=== PATIENT | female | born 1960 | race Caucasian/White ===

== ENCOUNTER 2019-10-03 | Day surgery (SDC) | payer MEDICARE, MEDICAID ==
[~2019-10-03] MED LIST: ALL DAY10 MG PO; ARTHROTEC 50 PO; ASPIRIN 81 LOW81 MG MT; CALTRATE 600+D31 TAB; CENTRU2 PO; CETIRIZINE10 MG PO; ESTRADIOL0.1 MG/GM PO; FERROUS SULFAT325 MG PO; FISH OIL1000 MG PO; FUROSEMIDE20 MG PO; GABAPENTIN400 M2 PO; HYDROCODONE/ACE1 TAB PO; LIPITOR40 M1 PO; LORTAB 1010 MG PO; LYRICA150 MG PO; METFORMIN1000 MG PO; METO PO; MONTELUKAST SOD10 MG PO; NITROGLYCER0.1 MG/HR TD; PROAIR HFA IN; PROTONIX40 M4 PO; SERTRALINE50 MG PO; TIZANIDINE4 MG PO; TRULICITY0.75 MG/0.
[2019-10-03] MEDS ORDERED: LYRICA150 MG PO (07:54)
[2019-10-16] MEDS ORDERED: HYDROCODONE/ACE1 TAB PO (10:46)
[2019-11-13] MEDS ORDERED: HYDROCODONE/ACE1 TAB PO (10:52)
[2019-12-11] MEDS ORDERED: CLOPIDOGREL75 MG PO (10:49)
[2019-12-11] MEDS ORDERED: EVEKEO10 MG PO (10:49)
[2019-12-11] MEDS ORDERED: HYDROCODONE/ACE1 TAB PO (10:59)
[2020-01-08] MEDS ORDERED: HYDROCODONE/ACE1 TAB PO (11:04)
[2020-01-08] MEDS ORDERED: LYRICA150 MG PO (11:05)
[2020-02-12] MEDS ORDERED: PERCOCET 10/31 COMBO PO (11:20)
[2020-03-11] MEDS ORDERED: PERCOCET 10/31 COMBO PO (10:47)
[2020-04-08] MEDS ORDERED: PERCOCET 10/31 COMBO PO (10:45)
[2020-04-08] MEDS ORDERED: LYRICA225 MG PO (10:46)
[2020-05-06] MEDS ORDERED: PERCOCET 10/31 COMBO PO (11:32)
== END 2019-10-03 09:30 | disposition home or self-care (01) ==
DX: M46.1 Sacroiliitis, not elsewhere classified (principal)

== ENCOUNTER → 2019-10-24 | Day surgery (SDC) | payer MEDICARE, MEDICAID ==
[~2019-10-24] MED LIST changes: +CLOPIDOGREL75 MG PO; +EVEKEO10 MG PO; +LYRICA225 MG PO; +METFORMIN500 M2 PO; +PERCOCET 10/31 COMBO PO; +ULTRAM50 M1 PO
== END ==
DX: M51.26 Other intervertebral disc displacement, lumbar region (principal); M54.16 Radiculopathy, lumbar region
CPT/HCPCS: Q9967

== ENCOUNTER 2020-01-23 06:16 | Day surgery (SDC) | payer MEDICARE, MEDICAID ==
[~2020-01-23 06:16] MED LIST changes: -LYRICA225 MG PO; -METFORMIN500 M2 PO; -PERCOCET 10/31 COMBO PO; -ULTRAM50 M1 PO
[2020-01-23] MEDS ORDERED: METFORMIN500 M2 PO (06:48)
[2020-01-23 07:43] VITALS: BP 151/75
[2020-01-23] MEDS ORDERED: LYRICA225 MG PO (08:19)
[2020-02-12] MEDS ORDERED: PERCOCET 10/31 COMBO PO (11:20)
[2020-03-11] MEDS ORDERED: PERCOCET 10/31 COMBO PO (10:47)
[2020-04-08] MEDS ORDERED: PERCOCET 10/31 COMBO PO (10:45)
[2020-04-08] MEDS ORDERED: LYRICA225 MG PO (10:46)
[2020-05-06] MEDS ORDERED: PERCOCET 10/31 COMBO PO (11:32)
== END 2020-01-23 08:25 | disposition home or self-care (01) ==
LOC: ORM 06:16
PROVIDERS: ATTEND Anesthesiology Pain Medicine
DX: M76.32 Iliotibial band syndrome, left leg (principal); M70.62 Trochanteric bursitis, left hip; Z01.84 Encounter for antibody response examination; M51.26 Other intervertebral disc displacement, lumbar region; M54.16 Radiculopathy, lumbar region

== ENCOUNTER 2020-05-16 11:03 | Emergency (ER) | payer MEDICARE, MEDICAID ==
[~2020-05-16] VITALS: Ht 157.5 cm; Wt 94.5 kg
[~2020-05-16 11:03] MED LIST changes: +LYRICA225 MG PO; +METFORMIN500 M2 PO; +PERCOCET 10/31 COMBO PO
[2020-05-16] MEDS ORDERED: ULTRAM50 M1 PO (12:16)
[2020-05-16 12:41] VITALS: BP 128/59
== END 2020-05-16 12:42 | disposition home or self-care (01) ==
LOC: ED 11:03
DX: S96.912A Strain of unspecified muscle and tendon at ankle and foot level, left foot, initial encounter (principal); E11.9 Type 2 diabetes mellitus without complications; W18.30XA Fall on same level, unspecified, initial encounter; Y92.009 Unspecified place in unspecified non-institutional (private) residence as the place of occurrence of the external cause; Z79.84 Long term (current) use of oral hypoglycemic drugs

== ENCOUNTER 2021-07-03 12:32 | Emergency (ER) | payer MEDICARE, OTHER ==
[~2021-07-03] VITALS: Ht 157.5 cm; Wt 100.0 kg
[~2021-07-03 12:32] MED LIST changes: +DITROPAN5 MG/TA1 PO; +MEDDOSEPAK PO; +ULTRAM50 M1 PO
[2021-07-03] MEDS ORDERED: CENTRU2 PO (14:44)
[2021-07-03] MEDS ORDERED: CALTRATE 600+D31 TAB PO (14:45)
[2021-07-03] MEDS ORDERED: FISH OIL1000 MG PO (14:45)
[2021-07-03] MEDS ORDERED: SLOW-MAG PO (14:46)
[2021-07-03] MEDS ORDERED: IRON HIGH-POTE325 MG PO (14:48)
[2021-07-03] MEDS ORDERED: BIOTIN5000 MCG PO (14:49)
[2021-07-03] MEDS ORDERED: D32000 UNIT PO (14:49)
[2021-07-03] MEDS ORDERED: DICLOFENAC SODI50 MG PO (14:50)
[2021-07-03] MEDS ORDERED: LYRICA225 MG PO (14:51)
[2021-07-03] MEDS ORDERED: LASIX 20 MG TAB20 MG PO (14:52)
[2021-07-03] MEDS ORDERED: ADLT ASA LOW81 MG PO (14:52)
[2021-07-03] MEDS ORDERED: NITROSTAT0.4 MG SL (14:53)
[2021-07-03] MEDS ORDERED: PERCOCET 10/31 COMBO PO (14:53)
[2021-07-03] MEDS ORDERED: ATORVASTATIN CA40 MG PO (14:54)
[2021-07-03] MEDS ORDERED: PROTONIX40 M2 PO (14:54)
[2021-07-03] MEDS ORDERED: SINGULAIR10 MG PO (14:55)
[2021-07-03] MEDS ORDERED: METFORMIN500 M2 PO (14:55)
[2021-07-03] MEDS ORDERED: TRULICITY1.5 MG/0.5 SC (14:55)
[2021-07-03] MEDS ORDERED: PROAIR HFA IN (14:56)
[2021-07-03] MEDS ORDERED: CETIRIZINE10 MG PO (14:56)
[2021-07-03] MEDS ORDERED: TIZANIDINE4 MG PO (14:57)
[2021-07-03] MEDS ORDERED: SERTRALINE100 MG PO (14:57)
[2021-07-03] MEDS ORDERED: FLUOCIN ACET0.011 EX (14:58)
[2021-07-03] MEDS ORDERED: CLOPIDOGREL75 MG PO (14:59)
[2021-07-03] MEDS ORDERED: DITROPAN5 MG/TA1 PO (15:00)
[2021-07-03 18:30] VITALS: BP 122/66
[2021-07-07] MEDS ORDERED: PERCOCET 10/31 COMBO PO (11:21)
== END 2021-07-03 18:30 | disposition home or self-care (01) ==
LOC: ED 12:32
DX: M15.9 Polyosteoarthritis, unspecified (principal); E11.9 Type 2 diabetes mellitus without complications; I25.10 Atherosclerotic heart disease of native coronary artery without angina pectoris; K21.9 Gastro-esophageal reflux disease without esophagitis; J45.909 Unspecified asthma, uncomplicated; Z79.84 Long term (current) use of oral hypoglycemic drugs

== ENCOUNTER 2021-12-25 22:35 | Observation (INO) | payer MEDICARE, MEDICAID ==
[~2021-12-25] VITALS: Ht 157.5 cm; Wt 77.1 kg
[~2021-12-25 22:35] MED LIST changes: +ADLT ASA LOW81 MG PO; +ATORVASTATIN CA40 MG PO; +BIOTIN5000 MCG PO; +CALTRATE 600+D31 TAB PO; +D32000 UNIT PO; +DICLOFENAC SODI50 MG PO; +FLUOCIN ACET0.011 EX; +IRON HIGH-POTE325 MG PO; +LASIX 20 MG TAB20 MG PO; +NITROSTAT0.4 MG SL; +PROTONIX40 M2 PO; +SINGULAIR10 MG PO; +SLOW-MAG PO; +TRULICITY1.5 MG/0.5 SC
[2021-12-25 22:43] VITALS: BP 104/62
[2021-12-25 22:46] VITALS: BP 77/55
[2021-12-25 22:48] VITALS: BP 97/65
[2021-12-25 23:00] VITALS: BP 118/103
[2021-12-25 23:18] LABS: URINE BILIRUBIN - DIPSTICK NEGATIVE (NEGATIVE); URINE BLOOD DIPSTICK NEGATIVE (NEGATIVE); URINE COLOR YELLOW; URINE GLUCOSE - DIPSTICK NEGATIVE (NEGATIVE); URINE KETONE TRACE mg/dL (NEGATIVE); URINE LEUK ESTERASE NEGATIVE (NEGATIVE); URINE PROTEIN - DIPSTICK NEGATIVE (NEG-TRACE); URINE SPECIFIC GRAVITY 1.025; URINE UROBILINOGEN - DIPSTICK 0.2 E.U./dL (0.2)
[2021-12-25 23:18] LABS: HEMATOCRIT 37.4 % (37.0-47.0); HEMOGLOBIN 12.1 g/dl (12.0-16.0); IMMATURE GRANULOCYTES 0.2 % (0.0-5.0); MEAN CELL VOLUME 92.6 fL CALC (80.0-100.0); MEAN CORPUSCULAR HGB CONC 32.4 g/dL CAL (32.0-36.0); NEUT# 7.09 thou/uL (2.00-7.15); RED BLOOD COUNT 4.04 mill/uL (4.20-5.60)
[2021-12-25 23:19] LABS: URINE NITRITE - DIPSTICK NEGATIVE (Negative)
[2021-12-25 23:23] VITALS: BP 140/68
[2021-12-25 23:30] VITALS: BP 151/59
[2021-12-25 23:42] LABS: ALBUMIN 3.9 g/dL (3.2-5.0); ALKALINE PHOSPHATASE 83 u/l (38-126); ANION GAP 12 (6-22 (CALC)); BILIRUBIN, TOTAL 0.3 mg/dL (0.0-1.4); BUN 18 mg/dL (8-23); BUN/CREATININE RATIO 16 (12-20 (CALC)); CARBON DIOXIDE 28 mmol/l (22-30); CHLORIDE 104 mmol/l (95-108); CREATININE 1.1 mg/dL (0.5-1.0); ETHYL ALCOHOL 0 mg/dl (0-30); GFR 50 ML/MIN (>=60 (CALC)); GFR FOR AFR.AMER. > 60 ML/MIN (>=60 (CALC)); POTASSIUM 4.3 mmol/l (3.5-5.1); SGOT/AST 26 u/l (9-36); SODIUM 139 mmol/l (137-146); TOTAL PROTEIN 7.3 g/dL (6.3-8.2)
[2021-12-25 23:53] LABS: MYOGLOBIN 46 ng/mL (0 - 62)
[2021-12-26] VITALS (7 sets, daily range): BP systolic 120–160; BP diastolic 44–81
== END 2021-12-26 12:40 | disposition home or self-care (01) ==
LOC: ED 22:35 → ED-I 12-26 01:00 → MS2 12-26 01:10 → ED 12-26 01:10 → MS2 12-26 12:40
PROVIDERS: Family Medicine; ADMIT Internal Medicine; ATTEND Internal Medicine
DX: G92.8 Other toxic encephalopathy (principal); R50.9 Fever, unspecified; G89.4 Chronic pain syndrome; E11.9 Type 2 diabetes mellitus without complications; I25.10 Atherosclerotic heart disease of native coronary artery without angina pectoris; J45.909 Unspecified asthma, uncomplicated; F32.A Depression, unspecified; K21.9 Gastro-esophageal reflux disease without esophagitis; Z98.84 Bariatric surgery status; Z79.84 Long term (current) use of oral hypoglycemic drugs; Z79.899 Other long term (current) drug therapy; Z20.822 Contact with and (suspected) exposure to COVID-19
CPT/HCPCS: G0378; J1650

== ENCOUNTER 2021-12-27 15:43 | Observation (INO) | payer MEDICARE, MEDICAID ==
[2021-12-27] VITALS (8 sets, daily range): BP systolic 105–161; BP diastolic 55–81
[~2021-12-27] VITALS: Ht 157.5 cm; Wt 75.0 kg
[2021-12-27 17:13] LABS: HEMATOCRIT 34.5 % (37.0-47.0); HEMOGLOBIN 10.7 g/dl (12.0-16.0); IMMATURE GRANULOCYTES 0.2 % (0.0-5.0); MEAN CELL VOLUME 93.8 fL CALC (80.0-100.0); MEAN CORPUSCULAR HGB 29.1 pG CALC (26.0-32.0); NEUT# 2.65 thou/uL (2.00-7.15); RED BLOOD COUNT 3.68 mill/uL (4.20-5.60)
[2021-12-27 17:15] LABS: URINE BILIRUBIN - DIPSTICK NEGATIVE (NEGATIVE); URINE BLOOD DIPSTICK NEGATIVE (NEGATIVE); URINE COLOR YELLOW; URINE GLUCOSE - DIPSTICK NEGATIVE (NEGATIVE); URINE KETONE NEGATIVE (NEGATIVE); URINE LEUK ESTERASE TRACE (NEGATIVE); URINE NITRITE - DIPSTICK NEGATIVE (Negative); URINE PROTEIN - DIPSTICK NEGATIVE (NEG-TRACE); URINE SPECIFIC GRAVITY 1.015; URINE UROBILINOGEN - DIPSTICK 0.2 E.U./dL (0.2)
[2021-12-27 17:30] LABS: ALBUMIN 3.4 g/dL (3.2-5.0); ALKALINE PHOSPHATASE 67 u/l (38-126); ANION GAP 10 (6-22 (CALC)); BILIRUBIN, TOTAL 0.1 mg/dL (0.0-1.4); BUN 16 mg/dL (8-23); BUN/CREATININE RATIO 19 (12-20 (CALC)); CARBON DIOXIDE 26 mmol/l (22-30); CHLORIDE 106 mmol/l (95-108); CREATININE 0.9 mg/dL (0.5-1.0); GFR > 60 ML/MIN (>=60 (CALC)); GFR FOR AFR.AMER. > 60 ML/MIN (>=60 (CALC)); POTASSIUM 4.2 mmol/l (3.5-5.1); SGOT/AST 31 u/l (9-36); SODIUM 138 mmol/l (137-146); TOTAL PROTEIN 6.7 g/dL (6.3-8.2)
[2021-12-28 04:08] VITALS: BP 123/46
[2021-12-28 05:26] LABS: HEMATOCRIT 29.8 % (37.0-47.0); HEMOGLOBIN 9.8 g/dl (12.0-16.0); MEAN CELL VOLUME 92.5 fL CALC (80.0-100.0); MEAN CORPUSCULAR HGB 30.4 pG CALC (26.0-32.0); MEAN CORPUSCULAR HGB CONC 32.9 g/dL CAL (32.0-36.0); NEUT# 1.88 thou/uL (2.00-7.15); RED BLOOD COUNT 3.22 mill/uL (4.20-5.60); RED CELL DISTRI WIDTH 12.9 % (11.5-15.5)
[2021-12-28 05:44] LABS: ANION GAP 10 (6-22 (CALC)); BUN 11 mg/dL (8-23); BUN/CREATININE RATIO 18 (12-20 (CALC)); CARBON DIOXIDE 26 mmol/l (22-30); CHLORIDE 108 mmol/l (95-108); CREATININE 0.6 mg/dL (0.5-1.0); GFR > 60 ML/MIN (>=60 (CALC)); GFR FOR AFR.AMER. > 60 ML/MIN (>=60 (CALC)); MAGNESIUM 1.4 mg/dL (1.6-2.3); POTASSIUM 3.6 mmol/l (3.5-5.1); SODIUM 140 mmol/l (137-146)
[2021-12-28 07:26] VITALS: BP 167/78
[2021-12-28 07:30] VITALS: BP 167/78
[2021-12-28 10:48] VITALS: BP 136/85
[2021-12-28 12:19] LABS: URINE BILIRUBIN - DIPSTICK NEGATIVE (NEGATIVE); URINE BLOOD DIPSTICK NEGATIVE (NEGATIVE); URINE COLOR YELLOW; URINE GLUCOSE - DIPSTICK NEGATIVE (NEGATIVE); URINE KETONE NEGATIVE (NEGATIVE); URINE LEUK ESTERASE NEGATIVE (NEGATIVE); URINE PH 7.5 (4.5-8.0); URINE PROTEIN - DIPSTICK NEGATIVE (NEG-TRACE); URINE UROBILINOGEN - DIPSTICK 0.2 E.U./dL (0.2)
[2021-12-28 12:21] LABS: URINE NITRITE - DIPSTICK NEGATIVE (Negative)
[2021-12-28] MEDS ORDERED: TIZANIDINE4 MG PO (14:12)
[2021-12-28] MEDS ORDERED: NORVASC5 M1 PO (14:13)
[2021-12-28] MEDS ORDERED: BUPROPION100 MG PO (14:13)
[2021-12-28 14:37] VITALS: BP 168/74
[2021-12-28 19:42] VITALS: BP 159/60
[2021-12-29 00:01] VITALS: BP 172/63
[2021-12-29 04:33] VITALS: BP 156/48
[2021-12-29 06:15] LABS: HEMATOCRIT 32.9 % (37.0-47.0); HEMOGLOBIN 10.6 g/dl (12.0-16.0); MEAN CELL VOLUME 91.9 fL CALC (80.0-100.0); MEAN CORPUSCULAR HGB 29.6 pG CALC (26.0-32.0); MEAN CORPUSCULAR HGB CONC 32.2 g/dL CAL (32.0-36.0); RED BLOOD COUNT 3.58 mill/uL (4.20-5.60); RED CELL DISTRI WIDTH 12.9 % (11.5-15.5)
[2021-12-29 06:37] LABS: ANION GAP 13 (6-22 (CALC)); BUN 8 mg/dL (8-23); BUN/CREATININE RATIO 12 (12-20 (CALC)); CARBON DIOXIDE 28 mmol/l (22-30); CHLORIDE 105 mmol/l (95-108); CREATININE 0.7 mg/dL (0.5-1.0); GFR > 60 ML/MIN (>=60 (CALC)); GFR FOR AFR.AMER. > 60 ML/MIN (>=60 (CALC)); MAGNESIUM 1.6 mg/dL (1.6-2.3); POTASSIUM 4.1 mmol/l (3.5-5.1); SODIUM 142 mmol/l (137-146)
[2021-12-29 07:43] VITALS: BP 166/63
[2021-12-29] MEDS ORDERED: ERTAPENEM1 G1 IV (13:16)
== END 2021-12-29 15:00 | disposition home or self-care (01) ==
LOC: ED 15:43 → ED-I 17:48 → ED 17:53 → MS2 17:54
PROVIDERS: Family Medicine; Hospitalist; ADMIT Internal Medicine; ATTEND Internal Medicine
DX: A41.51 Sepsis due to Escherichia coli [E. coli] (principal); I10 Essential (primary) hypertension; E11.9 Type 2 diabetes mellitus without complications; I25.10 Atherosclerotic heart disease of native coronary artery without angina pectoris; K21.9 Gastro-esophageal reflux disease without esophagitis; J45.909 Unspecified asthma, uncomplicated; K29.70 Gastritis, unspecified, without bleeding; G89.29 Other chronic pain; Z16.12 Extended spectrum beta lactamase (ESBL) resistance; Z98.84 Bariatric surgery status; Z79.84 Long term (current) use of oral hypoglycemic drugs; Z20.822 Contact with and (suspected) exposure to COVID-19
CPT/HCPCS: J1335; J1650; Q3014

== ENCOUNTER 2022-09-01 21:53 | Inpatient (IN) | payer MEDICARE, MEDICAID ==
[~2022-09-01] VITALS: Ht 157.5 cm; Wt 70.0 kg
[~2022-09-01 21:53] MED LIST changes: +BUPROPION100 MG PO; +ERTAPENEM1 G1 IV; +NORVASC5 M1 PO
--- NOTE | 2022-09-01 21:54 | NUR ---
PT TO ROOM 15 VIA EMS.
[2022-09-01 22:15] VITALS: BP 69/42
[2022-09-01 22:18] VITALS: BP 47/30
[2022-09-01 22:46] VITALS: BP 125/74
[2022-09-01 23:16] LABS: BASO% 0.1 % (0-3); EOS% 0.1 % (0-8); HEMATOCRIT 30.3 % (37.0-47.0); HEMOGLOBIN 10.1 g/dl (12.0-16.0); IMMATURE GRANULOCYTES 0.8 % (0.0-5.0); MEAN CORPUSCULAR HGB 28.5 pG CALC (26.0-32.0); MEAN CORPUSCULAR HGB CONC 33.3 g/dL CAL (32.0-36.0); MONO% 3.9 % (2-13); NEUT# 13.2 thou/uL (2.00-7.15); NEUT% 92.1 % (42-76); RED BLOOD COUNT 3.55 mill/uL (4.20-5.60); RED CELL DISTRI WIDTH 15.5 % (11.5-15.5)
[2022-09-01 23:21] LABS: MEAN CELL VOLUME 85.4 fL CALC (80.0-100.0)
[2022-09-01 23:33] LABS: ALBUMIN 3.7 g/dL (3.2-5.0); CREATININE 1.2 mg/dL (0.5-1.0); MAGNESIUM 1.5 mg/dL (1.6-2.3); POTASSIUM 4.3 mmol/l (3.5-5.1); TOTAL PROTEIN 7.3 g/dL (6.3-8.2)
[2022-09-01 23:34] LABS: BILIRUBIN, TOTAL 0.2 mg/dL (0.0-1.4)
--- NOTE | 2022-09-01 23:45 | NUR ---
PT IN CT BUT WILL NOT ROLL ON BACK. PT ALREADY GIVEN DILAUDID 2 MG IV. PT NOW GIVEN PHENERGAN [address] PT STILL REFUSING TO LAY ON BACK. PT MOVED TO CT TABLE AND CT'S OBTAINED WHILE PT ON LEFT SIDE. PT BROUGHT BACK TO ER. PT NOW SLEEPING SOUNDLY. REMAINES ON LEFT SIDE. FAMILY AT BEDSIDE. O2 SAT ON RA AT 85%. PLACED ON NC AT 2 LPM. SAT INCREASED TO 93% ON 2 LPM/NC.
[2022-09-02] VITALS (13 sets, daily range): BP systolic 90–159; BP diastolic 30–74
--- NOTE | 2022-09-02 00:30 | NUR ---
PT RESTING, AT BS.
--- NOTE | 2022-09-02 01:28 | NUR ---
Reassessment of patient completed. No distress noted. AT BS. PT SLEEPING NAD.
--- NOTE | 2022-09-02 02:00 | NUR ---
16 FR PARK PLACED WITH MODERATE RETURN OF URINE AND BOLLOON INFLATD WITH 10 CC STERILE WATER. . URINE SAMPLE COLLECTED STERILE TECHNIQUE AND SENT TO LAB. CATHETER TAPED SECURELY WITH COLLECTION BAG TO GRAVITY. PT BJORN KRISHNA.
[2022-09-02 02:07] LABS: URINE BILIRUBIN - DIPSTICK NEGATIVE (NEGATIVE); URINE BLOOD DIPSTICK NEGATIVE (NEGATIVE); URINE COLOR YELLOW; URINE GLUCOSE - DIPSTICK NEGATIVE (NEGATIVE); URINE KETONE 15 mg/dL (NEGATIVE); URINE LEUK ESTERASE NEGATIVE (NEGATIVE); URINE PROTEIN - DIPSTICK NEGATIVE (NEG-TRACE); URINE UROBILINOGEN - DIPSTICK 0.2 E.U./dL (0.2)
[2022-09-02 02:13] LABS: URINE NITRITE - DIPSTICK NEGATIVE (Negative)
--- NOTE | 2022-09-02 03:00 | NUR ---
PT TRANSFERRED TO MED SURG RM 280,
--- NOTE | 2022-09-02 03:45 | NUR ---
PT TRANSFERRED TO ROOM 280 MED SURG.
--- NOTE | 2022-09-02 08:01 | NUR ---
BEDSIDE SHIFT REPORT, PT SLEEPING BUT AROUSES TO VERBAL AND TACTILE STIMULI, CONFUSED AND DISORIENTED, BREATHING EVEN AND NON-LABORED ON 2L O2,IVF 0.9 NS INFUSING @ 125 ML/HR TO SITE IN , CALL MILES IN REACH AND BED LOCKED IN LOWEST POSITION WITH ALARM ACTIVATED. TYLENOL SUPPOSITORY GIVE FOR FEVER OF 103.4 AT THIS TIME, WILL CONTINUE TO MONITOR AND ASSESS.
--- NOTE | 2022-09-02 08:30 | NUR ---
AWAKENED FOR MEAL, STILL CONFUSED, SEEM TO FAVOR LEFT SIDE AND DOES NOT WANT TO REPOSITION FROM LEFT SIDE. STILL DOES NOT STATE NAME OR , WILL CONTINUE TO MONITOR.
--- NOTE | 2022-09-02 09:41 | NUR ---
CALLED THE [facility] TO CONFIRM A PHYSICIAN CONSULT. I SPOKE WITH RIO, WHO STATED THAT THE CONSULT ORDER WHAT NOT SHOWING UP IN THE SYSTEM. I FAXED OVER A HARD COPY OF THE ORDER AT 0944 HRS.
--- NOTE | 2022-09-02 13:33 | NUR ---
S: VARGHESE TEJEDA is a 62 F who presents with AMS, fever, leucocytosis. She has a history of GERD, diabetes, asthma . All medications in patient's chart were reviewed. O: VS: BP 101/147 mmHg, P 107 bpm, RR 20 bpm,T 103.4 F W 70 kg, HT 62 inch, Scr= 1.2 mg/dl,CrCl= 44 ml/min A: Blood culture is pending wound culture is pending P: Patient is on meropenem 1 g IV q8h. Vancomycin ordered for pharmacy to dose. Start Vancomycin 1000 mg IV Q24H. Vancomycin trough is drawn before the 4th dose on 09/04/2022-22:30. Vancomycin goal trough is between 15-20 mcg/ml. Pharmacy will follow and or advise on antibiotics use as needed.
--- NOTE | 2022-09-02 14:00 | NUR ---
ALERT AND ORIENTED, WRITHES PERIODICALLY IN INTERMITTENT PAIN TO NARCISO LEGS, WARM COMPRESS APPLIED TO LEGS, WILL CONTINUE TO MONITOR AND ADDRESS NEEDS.
--- NOTE | 2022-09-02 15:23 | NUR ---
MUCH MORE ALERT AND ORIENTED AT THIS TIME, ORIENTED TO PLACE TIME AND PERSON,MORE RELAXED, FAVORS HER LEFT SIDE BUT REPOSITIONED TO BACK AT THIS TIME, SPOUSE AT BEDSIDE.
--- NOTE | 2022-09-02 19:30 | NUR ---
PATIENT RESTING IN BED, DROWSY. ALERT AND ABLE TO MAKE NEEDS KNOWN. PATIENT ABLE TO TELL ME HER NAME AND DATE OF . SOB WHEN SHE CHANGES POSITIONS. OXYGEN APPLIED DUE TO PATIENT DESATTING IN THE 80S. NC WITH 2L APPLIED. PATIENT TOLERATING WELL. ASSESSMENT COMPLETE. DRESSING TO BACK INTACT. PATIENT DOES TEND TO HAVE A HARD TIME MOVING ALONE IN BED. NEEDS ASSISTANCE WITH ADLS. BED REMAINS IN LOW POSITION. CALL MILES IN REACH.
--- NOTE | 2022-09-02 20:39 | NUR ---
NOTIFIED DIRECTOR CLIENT SERVICES OF PATIENT LOW BP. PATIENT APPEARS ASYMPTOMATIC. WILL RECHECK BP WITH DIFFERENT SIZE CUFF.
--- NOTE | 2022-09-02 23:24 | NUR ---
PATIENT REMAINS RESTING IN BED. NO COMPLAINTS VOICED AT THIS TIME. IV ABT HUNG PER ORDERS. BED REMAINS IN LOW POSITION. CALL MILES IN REACH.
--- NOTE | 2022-09-03 04:00 | NUR ---
PATIENT REMAINS RESTING IN BED ON HER SIDE. NO SIGNS OF DISTRESS NOTED. KEEPS REMOVING OXYGEN TUBING. REAPPLIED NEEDED. BED REMAINS IN LOW POSITION. CALL MILES IN REACH.
[2022-09-03 04:46] LABS: BASO% 0.1 % (0-3); HEMATOCRIT 28.3 % (37.0-47.0); HEMOGLOBIN 9.5 g/dl (12.0-16.0); IMMATURE GRANULOCYTES 0.4 % (0.0-5.0); LYMPH% 4.2 % (15-41); MEAN CELL VOLUME 84.7 fL CALC (80.0-100.0); MEAN CORPUSCULAR HGB 28.4 pG CALC (26.0-32.0); MEAN CORPUSCULAR HGB CONC 33.6 g/dL CAL (32.0-36.0); MONO% 3.8 % (2-13); NEUT# 15.54 thou/uL (2.00-7.15); NEUT% 91.5 % (42-76); RED BLOOD COUNT 3.34 mill/uL (4.20-5.60); RED CELL DISTRI WIDTH 16.1 % (11.5-15.5)
[2022-09-03 04:59] VITALS: BP 139/44
[2022-09-03 05:02] LABS: ALKALINE PHOSPHATASE 96 u/l (38-126); ANION GAP 6 (6-22 (CALC)); BUN 23 mg/dL (8-23); BUN/CREATININE RATIO 29 (12-20 (CALC)); CARBON DIOXIDE 28 mmol/l (22-30); CHLORIDE 107 mmol/l (95-108); CREATININE 0.8 mg/dL (0.5-1.0); GFR FOR AFR.AMER. > 60 ML/MIN (>=60 (CALC)); GFR OTHER RACES > 60 ML/MIN (>=60 (CALC)); MAGNESIUM 1.8 mg/dL (1.6-2.3); POTASSIUM 3.7 mmol/l (3.5-5.1); SODIUM 137 mmol/l (137-146)
[2022-09-03 05:06] LABS: ALBUMIN 2.6 g/dL (3.2-5.0); SGOT/AST 97 u/l (9-36); TOTAL PROTEIN 5.8 g/dL (6.3-8.2)
[2022-09-03 06:32] VITALS: BP 126/43
[2022-09-03 06:33] VITALS: BP 126/43
--- NOTE | 2022-09-03 07:34 | NUR ---
PT RESTING IN LOW FOWLERS POSITION. HEART RHYTHM ON TELE RESPIRATIONS ON ROOM AIR IV SITE NOTED. PT TO BE MEDICATED FOR PAIN. . PARK IN PLACE URINE DRAINING TO GRAVITY ALL SAFETY PRECAUTIONS IN PLACE CALL LIGHT INREACH.
--- NOTE | 2022-09-03 08:47 | NUR ---
PRELIMINARY BLOOD CULTURE RESULTS CALLED TO KELLY BUFFING TURNER AND COUNTER. / VIALS GROWING GRAM (+) COCCI NO CHANGE AT THIS TIME.
--- NOTE | 2022-09-03 11:26 | NUR ---
PROVIDERS ASSESSED PT PT DENIES FEELING IN RIGHT LEG. MRI STAT ,NEURO CONSULT AND CT TO BE DONE FOR PT TO BE TRANSFERED OUT UNKNOWN TIME FRAME.
--- NOTE | 2022-09-03 12:50 | NUR ---
PT CURRENTLY IN MRI.
[2022-09-03 14:46] VITALS: BP 133/50
--- NOTE | 2022-09-03 16:32 | NUR ---
PT COMPLAINS OF PAIN NEW MED ORDERED FOR PT .
--- NOTE | 2022-09-03 17:39 | NUR ---
BOOKED AN INFECTIOUS DISEASE CONSULT FOR DR PATTON THROUGH THE [facility].
--- NOTE | 2022-09-03 18:15 | NUR ---
NO NEW MEDICATION FOR PT ORDERED. ONLY PROVIDED WITH PAIN MEDICATION.
[2022-09-03 18:41] VITALS: BP 107/40
--- NOTE | 2022-09-03 19:31 | NUR ---
spoke to md need to have pt transfered to [facility], house manager need to contact transport
[2022-09-03 20:00] VITALS: BP 84/51
--- NOTE | 2022-09-03 22:23 | NUR ---
AFTER CHANGE OF SHIFT CHANGE, MRI RESULTS RETURNED AND DR. MANDUJANO INFORMED. PATIENT WAS TOLD OF IMPENDING TRANSFER TO [facility] ONCE ACCEPTED. SHE REQUESTED THAT HER , KARINE, BE INFORMED OF THE TRANSFER. [facility] TRANSFER CENTER CONTACTED AND PATIENT INFORMATION GIVEN. CONSENT SIGNED. PACKET FAXED AND IMAGES ON DISC. AWAITING THE MORNING FOR INSURANCE PROCESSING PER TRANSFER CENTER. NO BED WOULD BE ASSIGNED UNTIL MORNING.
[2022-09-04 00:08] VITALS: BP 88/59
[2022-09-04 04:33] VITALS: BP 109/45
[2022-09-04 05:36] LABS: HEMATOCRIT 26.5 % (37.0-47.0); HEMOGLOBIN 8.8 g/dl (12.0-16.0); IMMATURE GRANULOCYTES 0.3 % (0.0-5.0); LYMPH% 7.3 % (15-41); MEAN CELL VOLUME 85.2 fL CALC (80.0-100.0); MEAN CORPUSCULAR HGB 28.3 pG CALC (26.0-32.0); MEAN CORPUSCULAR HGB CONC 33.2 g/dL CAL (32.0-36.0); MONO% 6.5 % (2-13); NEUT# 9.42 thou/uL (2.00-7.15); NEUT% 84.9 % (42-76); RED BLOOD COUNT 3.11 mill/uL (4.20-5.60); RED CELL DISTRI WIDTH 16.2 % (11.5-15.5)
[2022-09-04 05:42] LABS: ALBUMIN 2.3 g/dL (3.2-5.0); ALKALINE PHOSPHATASE 103 u/l (38-126); ANION GAP 7 (6-22 (CALC)); BUN 17 mg/dL (8-23); BUN/CREATININE RATIO 25 (12-20 (CALC)); CARBON DIOXIDE 24 mmol/l (22-30); CHLORIDE 109 mmol/l (95-108); CREATININE 0.7 mg/dL (0.5-1.0); GFR FOR AFR.AMER. > 60 ML/MIN (>=60 (CALC)); GFR OTHER RACES > 60 ML/MIN (>=60 (CALC)); POTASSIUM 3.8 mmol/l (3.5-5.1); SGOT/AST 108 u/l (9-36); SODIUM 136 mmol/l (137-146); TOTAL PROTEIN 5.3 g/dL (6.3-8.2)
[2022-09-04 06:53] VITALS: BP 121/52
[2022-09-04 06:54] VITALS: BP 121/52
--- NOTE | 2022-09-04 07:23 | NUR ---
PT RESTING IN SEMI FOWLERS POSITION. PT C/O PAIN. TO LEFT LEG. RIGHT LEG NUMBNESS. HEARTRHYTHM ON TELE. RESPIRATIONS ON ROOM AIR AT THE TIME PT TAKES OFF OXYGEN NC. IV SITE NOTED.
--- NOTE | 2022-09-04 09:20 | NUR ---
PT DRESSING COMPLETED PER WOUND CARE ORDER.
[2022-09-04 10:37] VITALS: BP 107/49
--- NOTE | 2022-09-04 12:26 | NUR ---
PT TO BE TRANSFERED ONLY WAIT FOR BED CONFIRMATION.
[2022-09-04 15:04] VITALS: BP 114/65
--- NOTE | 2022-09-04 16:00 | NUR ---
PT RESTING .TRANSFER STILL PENDING AT THE TIME.
--- NOTE | 2022-09-04 18:05 | NUR ---
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 PT IV IN PLACE. PT TRANSFERED TO [facility].
== END 2022-09-04 18:00 | disposition short-term general hospital (02) | DRG 862 ==
LOC: ED 21:53 → ED-I 09-02 02:10 → ED 09-02 02:46 → MS2 09-02 02:47
PROVIDERS: Family Medicine; Nurse Practitioner Family; ADMIT Internal Medicine; ATTEND Internal Medicine
PROC: 0T9B70Z Drainage of Bladder with Drainage Device, Via Natural or Artificial Opening (ICD-10-PCS; principal; 2022-09-02)
DX: T81.42XA Infection following a procedure, deep incisional surgical site, initial encounter (principal); A40.0 Sepsis due to streptococcus, group A; G06.1 Intraspinal abscess and granuloma; E11.51 Type 2 diabetes mellitus with diabetic peripheral angiopathy without gangrene; I25.10 Atherosclerotic heart disease of native coronary artery without angina pectoris; E78.5 Hyperlipidemia, unspecified; K21.9 Gastro-esophageal reflux disease without esophagitis; J45.909 Unspecified asthma, uncomplicated; Y83.8 Other surgical procedures as the cause of abnormal reaction of the patient, or of later complication, without mention of misadventure at the time of the procedure; Z98.84 Bariatric surgery status; Z95.820 Peripheral vascular angioplasty status with implants and grafts; Z79.02 Long term (current) use of antithrombotics/antiplatelets; Z79.84 Long term (current) use of oral hypoglycemic drugs; Z20.822 Contact with and (suspected) exposure to COVID-19
CPT/HCPCS: A9579; J0690; J1335; J1650

== ENCOUNTER 2024-02-12 06:39 | Emergency (ER) | payer MEDICARE, MEDICAID ==
[2024-02-12] VITALS (32 sets, daily range): BP systolic 43–170; BP diastolic 16–143
[~2024-02-12 06:39] MED LIST changes: +DOXYCYCLINE100 MG PO; +LYRICA100 MG PO; +MORPHINE SUL15 MG PO; +OXYBUTYNIN CHLOR5 M2 PO
[2024-02-12 07:32] LABS: BASO% 0.5 % (0-3); EOS% 1.4 % (0-8); HEMATOCRIT 31.4 % (37.0-47.0); HEMOGLOBIN 8.9 g/dl (12.0-16.0); IMMATURE GRANULOCYTES 1.1 % (0.0-5.0); LYMPH% 48.9 % (15-41); MEAN CORPUSCULAR HGB 29.3 pG CALC (26.0-32.0); MEAN CORPUSCULAR HGB CONC 28.3 g/dL CAL (32.0-36.0); MONO% 6.7 % (2-13); NEUT# 3.49 thou/uL (2.00-7.15); NEUT% 41.4 % (42-76); RED BLOOD COUNT 3.04 mill/uL (4.20-5.60); RED CELL DISTRI WIDTH 13.5 % (11.5-15.5)
[2024-02-12 07:34] LABS: ALBUMIN 2.7 g/dL (3.2-5.0); CREATININE 1.4 mg/dL (0.5-1.0); POTASSIUM 4.2 mmol/l (3.5-5.1); TOTAL PROTEIN 5.3 g/dL (6.3-8.2)
[2024-02-12 07:39] LABS: BILIRUBIN, TOTAL 0.2 mg/dL (0.02-1.3); MEAN CELL VOLUME 103.3 fL CALC (80.0-100.0)
[2024-02-12] MEDS ORDERED: SODIUM CHLORIDE 0.9% 1,000 ML IV ONE ×3 (07:39→08:30)
[2024-02-12] MEDS ORDERED: DILTIAZEM HCL 25 MG/5 ML SDV IV ONE (07:45)
[2024-02-12 07:56] LABS: D-DIMER 0.98 mg/L (0.19-0.60)
[2024-02-12 07:59] LABS: INTERNATIONAL NORMALIZED RATIO 1.3 RATIO (0.7-1.3); PROTHROMBIN TIME 12.2 SECONDS (9.0-12.5)
[2024-02-12] MEDS ORDERED: cefTRIAXone SODIUM 1 GM/VIAL SDV ONE (08:00)
[2024-02-12] MEDS ORDERED: AZITHROMYCIN 500 MG/VIAL SDV IV ONE (08:01)
[2024-02-12] MEDS ORDERED: SODIUM CHLORIDE 0.9% 500 ML IV ONE ×2 (08:01→08:35)
[2024-02-12] MEDS ORDERED: SODIUM CHLORIDE 0.9% 100 ML IV ONE (08:02)
[2024-02-12] MEDS ORDERED: PROPOFOL 0 ML IV ONE (08:13)
[2024-02-12] MEDS ORDERED: INSULIN REGULAR (HUMAN) 100 UNIT/ML INJ IV ONE (08:20)
[2024-02-12] MEDS ORDERED: SUCCINYLCHOLINE CHLORIDE 20 MG/ML 10ML VIAL IV ONE ×2 (08:25→08:35)
[2024-02-12] MEDS ORDERED: AZITHROMYCIN 500 MG in SODIUM CHLORIDE 0.9% 250 ML IV ONE (08:35)
[2024-02-12 09:33] LABS: URINE BILIRUBIN - DIPSTICK Negative (NEGATIVE); URINE BLOOD DIPSTICK Moderate (NEGATIVE); URINE GLUCOSE - DIPSTICK 250 mg/dL (NEGATIVE); URINE KETONE Negative (NEGATIVE); URINE LEUK ESTERASE Negative (NEGATIVE); URINE NITRITE - DIPSTICK Negative (Negative); URINE PROTEIN - DIPSTICK >=300 mg/dL (NEG-TRACE); URINE SPECIFIC GRAVITY 1.025; URINE UROBILINOGEN - DIPSTICK 0.2 E.U./dL (0.2)
[2024-02-12 09:36] LABS: URINE COLOR Yellow; URINE EPITHELIAL CELLS MANY EPI/hpf (0-FEW); URINE MUCUS MODERATE hpf (NONE-FEW)
== END 2024-02-12 10:47 | disposition short-term general hospital (02) ==
LOC: ED 06:39
PROVIDERS: Family Medicine
PROC: 0T9B70Z Drainage of Bladder with Drainage Device, Via Natural or Artificial Opening (ICD-10-PCS; principal; 2024-02-12)
PROC: 5A1221J Performance of Cardiac Output, Continuous, Automated (ICD-10-PCS; 2024-02-12)
PROC: 3E033XZ Introduction of Vasopressor into Peripheral Vein, Percutaneous Approach (ICD-10-PCS; 2024-02-12)
PROC: 5A1935Z Respiratory Ventilation, Less than 24 Consecutive Hours (ICD-10-PCS; 2024-02-12)
DX: A41.9 Sepsis, unspecified organism (principal); R65.20 Severe sepsis without septic shock; I46.9 Cardiac arrest, cause unspecified; J18.9 Pneumonia, unspecified organism; I49.01 Ventricular fibrillation; E11.10 Type 2 diabetes mellitus with ketoacidosis without coma; I25.10 Atherosclerotic heart disease of native coronary artery without angina pectoris; K21.9 Gastro-esophageal reflux disease without esophagitis; E66.9 Obesity, unspecified; J45.909 Unspecified asthma, uncomplicated; Z98.84 Bariatric surgery status